=== PATIENT | male | born 2000 | race Caucasian/White ===

== ENCOUNTER 2018-02-13 16:16 | Emergency (ER) | payer OTHER ==
[~2018-02-13] VITALS: Ht 167.6 cm; Wt 87.1 kg
[2018-02-13 16:25] VITALS: BP 135/50
--- NOTE | 2018-02-13 16:31 | NUR ---
PT AMBULATES TO BED 5
--- NOTE | 2018-02-13 16:49 | NUR ---
17 yo m bib family w/ c/o cough/fever/vomitting/diarrhea, was seen by pcp, but not getting any better. Also reports mild epigastric pain-non radiating. Denies dysuria. pt a&o x 4. gcs 15. cms intact. rr even and unlabored. lungs bilaterally clear. abd soft, non-tender. er md notified. pt needs met. safety precautions in place. will continue to monitor.
[2018-02-13 17:38] VITALS: BP 135/50
--- NOTE | 2018-02-13 17:38 | NUR ---
Patient discharged with v/s stable. Written and verbal after care instructions given and explained. Patient alert, oriented and verbalized understanding of instructions. Ambulatory with steady gait. All questions addressed prior to discharge. ID band removed. Patient advised to follow up with PMD. Rx of Azithromycin, Tessalon Perles, Zofran ODT, and Lomotil given. Patient educated on indication of medication including possible reaction and side effects. Opportunity to ask questions provided and answered.
== END 2018-02-13 17:38 | disposition home or self-care (01) ==
LOC: MED 16:16
DX: J02.9 Acute pharyngitis, unspecified (principal); R05 Cough; R10.13 Epigastric pain; R11.10 Vomiting, unspecified
CPT/HCPCS: 71046; 99284